=== PATIENT | male | born 1955 | race Caucasian/White ===

== ENCOUNTER 2017-10-23 08:02 | Emergency (ER) | payer BC ==
[~2017-10-23] VITALS: Ht 177.8 cm; Wt 91.8 kg
[~2017-10-23 08:02] MED LIST: ASPI-1264 PO; ATOR80TA PO; CLOP75TA35 PO; FLAX100031 PO; LISI40TA4 PO; METH5TAB PO; NEBI5TAB5 PO; OMEG1CAP54 PO; SILD25TA PO; ZET10T PO
[2017-10-23 09:18] LABS: BASOPHILS % (AUTO) 0.5 % (0-1); EOSINOPHILS # (AUTO) 0.1 X10'3 (0-0.9); EOSINOPHILS % (AUTO) 1.5 % (0-6); HEMATOCRIT 44.1 % (42.0-52.0); HEMOGLOBIN 14.9 g/dl (14.0-17.9); LYMPHOCYTES # (AUTO) 1.4 X10'3 (1.1-4.8); LYMPHOCYTES % (AUTO) 18.5 % (21-51); MEAN CORPUSCULAR HEMOGLOBIN 29.6 PG (27.0-31.0); MEAN CORPUSCULAR HGB CONC 33.8 % (33.0-36.5); MEAN CORPUSCULAR VOLUME 87.7 FL (78-98); MEAN PLATELET VOLUME 8.1 FL (7.4-10.4); MONOCYTES # (AUTO) 0.7 X10'3 (0-0.9); MONOCYTES % (AUTO) 9.2 % (2-12); NEUTROPHILS # (AUTO) 5.5 X10'3 (1.8-7.7); NEUTROPHILS % (AUTO) 70.3 % (42-75); PLATELET COUNT 151 X10'3 (140-440); RED BLOOD COUNT 5.04 X10'6 (4.70-6.10); RED CELL DISTRIBUTION WIDTH 14.4 % (11.5-14.5); WHITE BLOOD COUNT 7.8 X10'3 (4.5-11.0)
[2017-10-23 09:30] LABS: INR 1.1 INR; PARTIAL THROMBOPLASTIN TIME 28 SECONDS (22-32)
[2017-10-23 09:35] LABS: ALANINE AMINOTRANSFERASE 40 U/L (12-78); ALBUMIN/GLOBULIN RATIO 1.1 (1.1-1.5); ALKALINE PHOSPHATASE 48 IU/L (46-116); ANION GAP 10 (8-16); ASPARTATE AMINO TRANSFERASE 33 U/L (10-37); BILIRUBIN,TOTAL 0.9 MG/DL (0.1-1.0); BLOOD UREA NITROGEN 9 MG/DL (7-18); BUN/CREATININE RATIO 13.2 (5.4-32.0); CALCIUM 8.9 MG/DL (8.5-10.1); CHLORIDE 103 MMOL/L (99-107); CREATININE 0.68 MG/DL (0.60-1.10); GLUCOSE 82 MG/DL (70-104); POTASSIUM 3.7 MMOL/L (3.5-5.1); SODIUM 138 MMOL/L (135-145); TOTAL CARBON DIOXIDE 25.1 MMOL/L (24-32); TOTAL PROTEIN 7.7 G/DL (6.4-8.2); eGFR > 90 ML/MIN
[2017-10-23] MEDS ORDERED: iohexol 300mg/ml 100ml inj. ONE (09:50)
[2017-10-23] MEDS ORDERED: dexamethasone sod phosphate 10mg/ml inj IV STA (10:31)
[2017-10-23] MEDS ORDERED: HYDROmorphone 1 mg/ml syringe IV ONE (11:40)
[2017-10-23] MEDS ORDERED: ondansetron/PF 4mg/2ml inj IV ONE (11:40)
[2017-10-23] MEDS ORDERED: CefTRIAXone/D5W-Rocephin 1gm 50 ML IV ONE (11:40)
[2017-10-23] MEDS ORDERED: PRED10TA PO (12:13)
[2017-10-23] MEDS ORDERED: AMOX250S62 PO (12:33)
[2017-10-23 13:11] VITALS: BP 132/72
== END 2017-10-23 13:13 | disposition home or self-care (01) ==
LOC: ER 08:02
DX: J36 Peritonsillar abscess (principal); G89.29 Other chronic pain; M54.9 Dorsalgia, unspecified; Z95.1 Presence of aortocoronary bypass graft; Z79.82 Long term (current) use of aspirin; Z88.2 Allergy status to sulfonamides
CPT/HCPCS: 36415; 70491; 71045; 80053; 85025; 85610; 85730; 87081; 87880; 96365; 96375; 99285; J0696; J1100; J1170; J2405; J7030; Q9967

== ENCOUNTER 2020-01-16 21:54 | Emergency (ER) | payer BC, MEDICARE ==
[~2020-01-16] VITALS: Ht 175.3 cm; Wt 86.4 kg
[~2020-01-16 21:54] MED LIST changes: +PRED10TA PO
[2020-01-16] MEDS ORDERED: gabapentin 400mg capsule PO ONE (22:45)
[2020-01-16] MEDS ORDERED: ketorolac trometh inj. 60 MG/2 ML VIAL IM ONE (22:45)
[2020-01-16] MEDS ORDERED: acetaminophen 325mg tablet PO ONE (22:45)
--- NOTE | 2020-01-16 23:03 | NUR ---
given tylenol, toradol im and gabapentin, us at bedside for vascular study of rle.
--- NOTE | 2020-01-16 23:53 | NUR ---
Pt resting in no apparent distress. Awaiting test results and plan of care.
[2020-01-17] MEDS ORDERED: MELO-100 PO (00:40)
[2020-01-17] MEDS ORDERED: ACET-812 PO (00:40)
[2020-01-17 01:12] VITALS: BP 164/91
== END 2020-01-17 01:13 | disposition home or self-care (01) ==
LOC: ER 21:55
DX: M79.604 Pain in right leg (principal); M54.9 Dorsalgia, unspecified; G89.29 Other chronic pain; Z95.1 Presence of aortocoronary bypass graft; Z98.890 Other specified postprocedural states; Z88.2 Allergy status to sulfonamides; Z79.899 Other long term (current) drug therapy; Z79.82 Long term (current) use of aspirin
CPT/HCPCS: 72131; 93971; 96372; 99285; J1885